=== PATIENT | male | born 2000 | race Caucasian/White ===

== ENCOUNTER 2025-08-31 20:25 | Inpatient (IN) | payer SELFPAY ==
[~2025-08-31] VITALS: Ht 175.3 cm; Wt 67.6 kg
[2025-08-31 20:28] VITALS: O2SAT 95
[2025-08-31] MEDS: DIPHENHYDRAMINE 50MG/ML VIAL IM ONE (21:18)
[2025-08-31] MEDS: HALOPERIDOL LACTATE 5MG/ML VIAL IM ONE (21:18)
[2025-08-31] MEDS: LORAZEPAM 2MG/ML UD SYRINGE IM SCH (21:19)
[2025-08-31 21:40] LABS: CLARITY URINE CLEAR (CLEAR); COLOR URINE YELLOW (YELLOW); GLUCOSE URINE NEGATIVE (NEGATIVE); KETONES URINE 4+ (NEGATIVE); LEUKOCYTE ESTERASE URINE NEGATIVE (NEGATIVE); NITRITE URINE NEGATIVE (NEGATIVE); OCCULT BLOOD URINE TRACE (NEGATIVE); PH URINE 5.5 (4.5-8.0); PROTEIN URINE 1+ (NEGATIVE); SPECIFIC GRAVITY URINE 1.029 (1.005-1.030); UROBILINOGEN URINE 0.2 E.U./dL (0.2-1.0)
[2025-08-31 21:53] LABS: *AMPHETAMINES SCREEN URINE PRESUMPTIVE POSITIVE (NEGATIVE); *BARBITURATES SCREEN URINE NEGATIVE (NEGATIVE); *BENZODIAZEPINES SCREEN URINE NEGATIVE (NEGATIVE)
[2025-08-31 21:54] LABS: *COCAINE SCREEN URINE NEGATIVE (NEGATIVE); CANNABINOID URINE SCREEN NEGATIVE (NEGATIVE); ECSTASY MDMA SCREEN URINE CONF.TEST INDICATED (NEGATIVE); METHADONE URINE SCREEN NEGATIVE (NEGATIVE); OPIATES URINE SCREEN NEGATIVE (NEGATIVE); PHENCYCLIDINE URINE SCREEN NEGATIVE (NEGATIVE)
[2025-08-31 21:57] LABS: BACTERIA URINE 2+; RBC URINE 0-2 /hpf (0-2); SQUAMOUS EPITHELIAL CELL URINE 1+ /lpf (RARE/1+); WBC URINE 0-2 /hpf (0-2)
[2025-08-31 23:25] LABS: CREATININE 1.1 mg/dL (0.6-1.3); UREA NITROGEN BLOOD 26 mg/dL (9-23)
[2025-08-31 23:26] LABS: TROPONIN I HIGH SENSITIVITY 19 ng/L (3.0-53)
[2025-08-31 23:27] LABS: ASPARTATE AMINOTRANSFERASE 432 IU/L (<34); BILIRUBIN DIRECT 0.5 mg/dL (<=3.0)
[2025-08-31 23:28] LABS: BILIRUBIN TOTAL 1.8 mg/dL (0.1-1.0); PROTEIN TOTAL 7.5 g/dL (6.0-8.3)
[2025-08-31 23:35] LABS: BASOPHILS % 0.3 % (0.0-2.0); EOSINOPHILS % 0.1 % (0.0-5.0); HEMATOCRIT. 36.5 % (42.0-52.0); HEMOGLOBIN. 12.4 g/dL (14.0-18.0); LYMPHOCYTES % 23.0 % (20.0-50.0); MEAN PLATELET VOLUME 6.7 fl (7.4-10.4); MONOCYTES % 10.4 % (2.0-8.0); NEUTROPHILS % 66.2 % (40.0-76.0); PLATELET 305 x1000/uL (130-400); RED BLOOD CELL COUNT 4.21 mill/uL (4.7-6.1); RED CELL DISTRIBUTION WIDTH 14.4 % (11.6-14.6)
[2025-08-31] MEDS: SODIUM CHLORIDE 0.9% 1,000 ML IV ONE (23:36)
[2025-09-01] MEDS: SODIUM CHLORIDE 0.9% 1,000 ML IV ONE ×2 (00:28→00:29)
[2025-09-01 02:30] VITALS: BP 128/73; PULSE 88; RESP 16; TEMP 35.9176
[2025-09-01] MEDS ORDERED: IPRATROPIUM/ALBUTEROL 0.5-3(2.5)MG/3ML NEB HHN PRN (03:00)
[2025-09-01] MEDS ORDERED: GUAIFENESIN 200MG/10ML SUGAR FREE UDC PO PRN (03:00)
[2025-09-01] MEDS ORDERED: CLONIDINE 0.1MG TABLET PO PRN (03:00)
[2025-09-01] MEDS ORDERED: DOCUSATE SODIUM 100MG CAPSULE PO PRN (03:00)
[2025-09-01] MEDS ORDERED: ACETAMINOPHEN 325MG TABLET PO PRN ×2 (03:00)
[2025-09-01] MEDS: SODIUM CHLORIDE 0.9% 100 ML IV ONE (03:20)
[2025-09-01] MEDS ORDERED: CALCIUM 1250MG TABLET (500MG ELEMENTAL CALCIUM) PO NR (04:15)
[2025-09-01 08:00] VITALS: BP 100/50; PULSE 75; RESP 19; TEMP 36.2; O2SAT 97
[2025-09-01] MEDS: DEXT 5%/LACTATED RINGERS 1,000 ML IV SCH (09:37)
[2025-09-01 09:46] LABS: PROTEIN TOTAL 6.2 g/dL (6.0-8.3)
[2025-09-01 09:47] LABS: ASPARTATE AMINOTRANSFERASE 293 IU/L (<34); BILIRUBIN DIRECT 0.4 mg/dL (<=3.0); BILIRUBIN TOTAL 1.4 mg/dL (0.1-1.0); PHOSPHORUS 3.1 mg/dL (2.5-4.9)
[2025-09-01] MEDS: CALCIUM 1250MG TABLET (500MG ELEMENTAL CALCIUM) PO NR (10:37)
[2025-09-01 12:00] VITALS: BP 103/52; PULSE 94; RESP 18; TEMP 36.6; O2SAT 99
[2025-09-01 14:10] LABS: FOLIC ACID (FOLATE) SERUM 17.66 ng/mL (>5.38); VITAMIN B12 SERUM 373 pg/mL (211-911)
[2025-09-01 16:00] VITALS: BP 99/47; PULSE 76; RESP 20; TEMP 36.5; O2SAT 99
[2025-09-01] MEDS: SODIUM CHLORIDE 0.9% 1,000 ML IV SCH (16:27)
[2025-09-01 20:00] VITALS: BP 105/57; PULSE 80; RESP 16; TEMP 36.5; O2SAT 99
[2025-09-02 00:12] VITALS: BP 101/52; PULSE 80; RESP 18; TEMP 36.4; O2SAT 97
[2025-09-02 04:00] VITALS: BP 96/54; PULSE 77; RESP 17; TEMP 35.6; O2SAT 99
[2025-09-02 08:00] VITALS: BP 84/42; PULSE 61; RESP 16; TEMP 36.4; O2SAT 98
[2025-09-02 09:22] LABS: BASOPHILS % 0.4 % (0.0-2.0); EOSINOPHILS % 1.6 % (0.0-5.0); HEMATOCRIT. 34.6 % (42.0-52.0); HEMOGLOBIN. 11.6 g/dL (14.0-18.0); LYMPHOCYTES % 31.7 % (20.0-50.0); MEAN PLATELET VOLUME 6.7 fl (7.4-10.4); MONOCYTES % 8.1 % (2.0-8.0); NEUTROPHILS % 58.2 % (40.0-76.0); PLATELET 258 x1000/uL (130-400); RED BLOOD CELL COUNT 3.94 mill/uL (4.7-6.1); RED CELL DISTRIBUTION WIDTH 14.9 % (11.6-14.6)
[2025-09-02 09:35] LABS: CREATININE 0.6 mg/dL (0.6-1.3); UREA NITROGEN BLOOD 8 mg/dL (9-23)
[2025-09-02 12:00] VITALS: BP 101/62; PULSE 81; RESP 16; TEMP 36.4; O2SAT 99
[2025-09-02] MEDS ORDERED: CALCIUM 1250MG TABLET (500MG ELEMENTAL CALCIUM) PO SCH ×2 (12:30→21:00)
[2025-09-02] MEDS ORDERED: QUET50TA MT (16:43)
[2025-09-03] MEDS ORDERED: QUETIAPINE FUMARATE 50MG TABLET PO SCH (21:00)
== END 2025-09-02 17:19 | disposition left against medical advice (07) | DRG 422 ==
LOC: ER 20:25 → 5WST 09-01 00:40 → EDBEDREQTM 09-01 00:42 → EDBEDREQ 09-01 00:42
PROVIDERS: ADMIT Internal Medicine; ATTEND Internal Medicine
DX: E86.0 Dehydration (principal); M62.82 Rhabdomyolysis; E87.20 Acidosis, unspecified; E83.51 Hypocalcemia; N17.9 Acute kidney failure, unspecified; T43.4X5A Adverse effect of butyrophenone and thiothixene neuroleptics, initial encounter; D64.9 Anemia, unspecified; F20.9 Schizophrenia, unspecified; F41.9 Anxiety disorder, unspecified; F19.90 Other psychoactive substance use, unspecified, uncomplicated; Z53.29 Procedure and treatment not carried out because of patient's decision for other reasons; F15.90 Other stimulant use, unspecified, uncomplicated; F32.A Depression, unspecified; Z91.148 Patient's other noncompliance with medication regimen for other reason; Y92.89 Other specified places as the place of occurrence of the external cause; Z59.00 Homelessness unspecified
CPT/HCPCS: 36415; 71045; 80048; 80076; 80305; 80307; 80320; 80329; 81003; 82330; 82550; 82607; 82746; 83540; 83550; 83735; 84100; 84484; 85025; 87426; 93005; 96360; 96361; 96372; 99285; A4606; J1200; J1630; J2060; J7030; J7121; G0480